=== PATIENT | female | born 2000 | race Caucasian/White ===

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

== ENCOUNTER → 2021-03-20 14:59 | Outpatient (CLI) | payer OTHER, MEDICAID, SELFPAY | PROVIDERS: PCP Family Medicine; Visit Provider Family Medicine | DX: N89.8 Other specified noninflammatory disorders of vagina (principal) | CPT/HCPCS: 87210 ==

== ENCOUNTER 2023-06-30 11:29 | Emergency (ER) | payer OTHER, MEDICAID, SELFPAY ==
[2023-06-30 11:40] VITALS: BP 113/79; PULSE 71; RESP 12; TEMP 36.6; O2SAT 99; BMI 22.8
--- NOTE | 2023-06-30 12:18 | DI.US.S_ITS ---
PROCEDURE: US PELVIC COMPLETE INDICATIONS: Abnormal vaginal bleeding, pelvic pain TECHNIQUE: Real-time scanning was performed of the pelvic organs, with image documentation. Additional endovaginal scanning was necessary due to incomplete visualization of the adnexal and endometrial structures by transabdominal scanning. COMPARISON: None. FINDINGS: Uterus: Anteverted. 8.9 x 4.2 x 5.7 cm. Endometrium measures 3 mm. Homogeneous echotexture. Ovaries: Dominant follicle in the right ovary. Right ovarian volume is 12 cc. Left ovarian volume is 4 cc. Color spectral flows are seen. Other: No pathologic free fluid. IMPRESSION: No acute sonographic abnormality in the pelvis. Dictated by: Artis Ceron M.D. on 06/30/2023 at 12:59 Approved by: Artis Ceron M.D. on 06/30/2023 at 13:00
[2023-06-30 12:35] LABS: Add Manual Diff / Slide Review NO; Basophils Absolute Auto 0 /uL (0-100); Basophils Percent Auto 0.9 % (0-2); Eosinophils Absolute Auto 100 /uL (0-450); Eosinophils Percent Auto 2.3 % (2-4); Hematocrit 38.8 % (36-46); Hemoglobin 13.6 g/dL (12.0-16.0); Lymphocytes Absolute Auto 2100 /uL (1100-4500); Lymphocytes Percent Auto 35.8 % (25-40); Mean Corpuscular HGB Conc 35.2 % (30-36); Mean Corpuscular Hemoglobin 29.9 PG (26-34); Mean Corpuscular Volume 85.1 fL (80-100); Monocytes Absolute Auto 700 /uL (0-900); Monocytes Percent Auto 11.5 % (3-14); Neutrophils Absolute Auto 2800 /uL (1500-7000); Neutrophils Percent Auto 49.5 % (50-75); Platelet Count 289 X10^3/uL (150-400); Red Blood Cell Count 4.56 X10^6/uL (4.0-5.2); Red Cell Distribution Width 12.8 % (11.6-14.8); White Blood Cell Count 5.7 X10^3/uL (4.5-11.0)
[2023-06-30 12:46] LABS: Alanine Aminotransferase 17 IU/L (<35); Albumin 4.7 g/dL (3.5-5.0); Albumin Globulin Ratio 1.2 (1.0-2.8); Alkaline Phosphatase 38 U/L (38-126); Aspartate Aminotransferase 25 IU/L (14-36); BUN Creatinine Ratio 22.6 (6-22); Bilirubin Total 1.3 mg/dL (0.2-1.3); Blood Urea Nitrogen 12 mg/dL (7-17); Calcium 10.6 mg/dL (8.4-10.2); Carbon Dioxide 28 mmol/L (22-32); Chloride 103 mmol/L (98-107); Estimated Glomerular Filt Rate > 60 mL/min (>60); Globulin 3.8 g/dL (1.7-4.1); Glucose 82 mg/dL (70-100); HEMOLYSIS < 15 (0-50); Potassium 4.1 mmol/L (3.4-5.1); Sodium 139 mmol/L (137-145); Total Protein 8.5 g/dL (6.3-8.2)
--- NOTE | 2023-06-30 13:02 | ED_ITS ---
HPI - Female Genitourinary <Kam Gutierrez PA-C - Last Filed: 06/30/23 13:20> General Chief complaint: Vaginal Bleeding Stated complaint: been on period 2mo, back pain Time Seen by Provider: 06/30/23 11:46 Source: patient Mode of arrival: Ambulatory History of Present Illness HPI Narrative: 22-year-old female presents to the ED with 2 months of vaginal bleeding. Patient states that she had a baby 4 months ago, following which she had a miscarriage in March. After that, patient started on May 03, has been bleeding since then. Patient was seen at a hospital for the miscarriage and had an ultrasound performed at the time. Patient denies fever, chills, chest pain, shortness of breath, lightheadedness, dizziness, syncope. Patient does endorse some abdominal/pelvic cramping in the lower abdomen. Patient states that she has been passing some clots over the last few days. Patient states that she has been unable to get an expedient appointment with her OBGYN. Related Data Home Medications Medication Instructions Recorded Confirmed ferrous sulfate 325 mg (65 mg 325 mg PO DAILY 06/04/22 06/04/22 iron) tablet Previous Rx's Medication Instructions Recorded medroxyprogesterone 10 mg tablet See Rx Instructions .Route 06/30/23 .COMPLEX #42 tabs Allergies Allergy/AdvReac Type Severity Reaction Status Date / Time shellfish derived Allergy Intermediate Rash Verified 06/30/23 11:42 Review of Systems <Kam Gutierrez PA-C - Last Filed: 06/30/23 13:20> Constitutional Constitutional: Denies chills, Denies fatigue, Denies fever(s), Denies frequent falls, Denies lethargy and Denies weakness Eyes Eyes: Denies change in vision, Denies eye discharge, Denies irritation and Denies loss of vision ENT Ears, Nose, Mouth, and Throat: Denies change in voice, Denies dizziness, Denies neck pain, Denies sore throat and Denies throat swelling Cardiovascular Cardiovascular: Denies chest pain, Denies irregular heart rhythm, Denies lightheadedness, Denies palpitations, Denies dyspnea, Denies dyspnea on exertion and Denies orthopnea Respiratory Respiratory: Denies cough, Denies dyspnea, Denies dyspnea on exertion and Denies wheezing Gastrointestinal Gastrointestinal: Reports abdominal pain, Denies change in bowel habits, Denies diarrhea, Denies nausea and Denies vomiting Genitourinary Genitourinary: Reports abnormal vaginal bleeding Musculoskeletal Musculoskeletal: Denies neck pain and Denies numbness Integumentary/Breasts Skin/Breast: Denies pruritus, Denies erythema, Denies rash and Denies wounds Neurologic Neurologic: Denies behavioral changes, Denies confusion, Denies dizziness, Denies frequent falls, Denies loss of vision, Denies numbness and Denies weakness Psychiatric Psychiatric: Denies anxiety, Denies behavioral changes, Denies confusion, Denies depression, Denies homicidal ideation and Denies suicidal ideation Endocrine Endocrine: Denies fatigue, Denies flushing and Denies palpitations Hematologic/Lymphatic Hematologic/Lymphatic: Denies easy bruising Allergic/Immunologic Allergic/Immunologic: Denies urticaria, Denies throat swelling and Denies wheezing Patient History <Kam Gutierrez PA-C - Last Filed: 06/30/23 13:20> Medical History Ectopic depression Spontaneous vaginal delivery Enlarged pituitary gland Sprain of tibiofibular ligament of left ankle Asthma Ankle fracture, right Depression Chicken pox Surgical History H/O dilation and curettage Anesthesia History of oral surgery Family History Grandfather Pre-diabetes Grandmother Hypertension COPD (chronic obstructive pulmonary disease) Acute heart failure Stroke Mother Anxiety PTSD (post-traumatic stress disorder) Father Bipolar disorder Anxiety Depression Brother Heart murmur Sleep apnea Brother Asperger syndrome Sleep apnea Brother Hypothyroid Pre-diabetes Sleep apnea Son Horseshoe kidney Substance Use Type: does not use Exam <aKm Gutierrez PA-C - Last Filed: 06/30/23 13:20> Narrative Exam Narrative: Const General:?cooperative, healthy appearing and comfortable [facility] Head:?normal to inspection Ears:?hearing grossly normal bilaterally Nose:?external nose normal Face and sinus:?normal facial exam and sinuses nontender Mouth:?oral mucosae normal Throat:?posterior oropharynx normal Eyes General:?appearance normal, both eyes and all related structures Neck Neck:?normal visual inspection and no lymphadenopathy noted Resp Effort & Inspection:?normal respiratory effort Auscultation:?clear to auscultation bilaterally Cardio Rate:?regular rate Rhythm:?regular rhythm GI Abdomen is soft, nondistended. Abdomen is tender to palpation in the lower quadrants. Neuro General:?patient alert, patient awake and patient oriented x3 Initial Vital Signs Initial Vital Signs: Vital Signs Temperature 98 F 06/30/23 11:40 Pulse Rate 71 06/30/23 11:40 Respiratory Rate 12 06/30/23 11:40 Blood Pressure 113/79 06/30/23 11:40 Pulse Oximetry 99 06/30/23 11:40 Oxygen Delivery Method Room Air 06/30/23 11:40 <Amilcar Pizano MD - Last Filed: 07/10/23 10:06> Initial Vital Signs Initial Vital Signs: Vital Signs Temperature 98 F 06/30/23 11:40 Pulse Rate 71 06/30/23 11:40 Respiratory Rate 12 06/30/23 11:40 Blood Pressure 113/79 06/30/23 11:40 Pulse Oximetry 99 06/30/23 11:40 Oxygen Delivery Method Room Air 06/30/23 11:40 Course <Kam Gutierrez PA-C - Last Filed: 06/30/23 13:20> Orders Ordered: ED Orders 06/30/23 12:18 US pelvic complete Stat 06/30/23 12:28 CBC Auto Diff [Complete Blood Count AUTO DIFF] Stat CMP [Comprehensive Metabolic Panel] Stat Vital Signs Vital signs: Vital Signs - 8 hr 06/30/23 11:40 Temperature 98 F Pulse Rate 71 Respiratory Rate 12 Blood Pressure 113/79 Pulse Oximetry 99 Oxygen Delivery Method Room Air <Amilcar Pizano MD - Last Filed: 07/10/23 10:06> Orders Ordered: ED Orders 06/30/23 12:18 US pelvic complete Stat 06/30/23 12:28 CBC Auto Diff [Complete Blood Count AUTO DIFF] Stat CMP [Comprehensive Metabolic Panel] Stat Vital Signs Vital signs: Vital Signs - 8 hr 06/30/23 11:40 Temperature 98 F Pulse Rate 71 Respiratory Rate 12 Blood Pressure 113/79 Pulse Oximetry 99 Oxygen Delivery Method Room Air MDM - Female Genitourinary <Kam Gutierrez PA-C - Last Filed: 06/30/23 13:20> Lab Data 06/30/23 12:28 06/30/23 12:28 Labs: Lab Results 06/30/23 Range/Units 12:28 WBC 5.7 (4.5-11.0) X10^3/uL RBC 4.56 (4.0-5.2) X10^6/uL Hgb 13.6 (12.0-16.0) g/dL Hct 38.8 (36-46) % MCV 85.1 (80-100) fL MCH 29.9 (26-34) PG MCHC 35.2 (30-36) % RDW 12.8 (11.6-14.8) % Plt Count 289 (150-400) X10^3/uL Neut % (Auto) 49.5 L (50-75) % Lymph % (Auto) 35.8 (25-40) % [place] % (Auto) 11.5 (3-14) % Eos % (Auto) 2.3 (2-4) % Baso % (Auto) 0.9 (0-2) % Neut # (Auto) 2800 (5076-1477) /uL Lymph # (Auto) 2100 (4349-2711) /uL [place] # (Auto) 700 (0-900) /uL Eos # (Auto) 100 (0-450) /uL Baso # (Auto) 0 (0-100) /uL Sodium 139 (137-145) mmol/L Potassium 4.1 (3.4-5.1) mmol/L Chloride 103 (98-107) mmol/L Carbon Dioxide 28 (22-32) mmol/L BUN 12 (7-17) mg/dL Creatinine 0.53 (0.52-1.04) mg/dL Estimated GFR > 60 (>60) mL/min BUN/Creatinine Ratio 22.6 H (6-22) Glucose 82 (70-100) mg/dL Calcium 10.6 H (8.4-10.2) mg/dL Total Bilirubin 1.3 (0.2-1.3) mg/dL AST 25 (14-36) IU/L ALT 17 (<35) IU/L Alkaline Phosphatase 38 (38-126) U/L Total Protein 8.5 H (6.3-8.2) g/dL Albumin 4.7 (3.5-5.0) g/dL Globulin 3.8 (1.7-4.1) g/dL Albumin/Globulin Ratio 1.2 (1.0-2.8) Point of Care Testing Test Results Negative Urine Dip Bedside Urine Glucose Negative Bedside Urine Bilirubin - Negative Bedside Urine Ketone - Negative Urine Specific Cade 1.010 Bedside Urine Occult Blood +++ Bedside Urine pH 8.0 Bedside Urine Protein +/- 15 Bedside Urine Urobilinogen - Negative Bedside Urine Nitrite - Negative Bedside Urine Leukocytes - Negative Esterase MDM Narrative Medical decision making narrative: 22-year-old female presents to the ED with 2 months of vaginal bleeding. Concern for versus ectopic versus threatened miscarriage versus anemia versus other. Urine negative. Obtained labs. H/H stable at 13.6/38.8. Will obtain ultrasound and reassess. Ultrasound with no acute sonographic abnormality in the pelvis. It appears that the patient is suffering from non- dysfunctional uterine bleeding. Discussed with patient and she elected to start medroxyprogesterone to stem the bleeding. Patient agrees to follow-up with her OBGYN as soon as possible. ED return precautions were discussed with patient. Patient verbalized understanding. Medical records reviewed: Yes <Amilcar Pizano MD - Last Filed: 07/10/23 10:06> Lab Data Labs: Lab Results 06/30/23 Range/Units 12:28 WBC 5.7 (4.5-11.0) X10^3/uL RBC 4.56 (4.0-5.2) X10^6/uL Hgb 13.6 (12.0-16.0) g/dL Hct 38.8 (36-46) % MCV 85.1 (80-100) fL MCH 29.9 (26-34) PG MCHC 35.2 (30-36) % RDW 12.8 (11.6-14.8) % Plt Count 289 (150-400) X10^3/uL Neut % (Auto) 49.5 L (50-75) % Lymph % (Auto) 35.8 (25-40) % [place] % (Auto) 11.5 (3-14) % Eos % (Auto) 2.3 (2-4) % Baso % (Auto) 0.9 (0-2) % Neut # (Auto) 2800 (8102-5057) /uL Lymph # (Auto) 2100 (6128-1590) /uL [place] # (Auto) 700 (0-900) /uL Eos # (Auto) 100 (0-450) /uL Baso # (Auto) 0 (0-100) /uL Sodium 139 (137-145) mmol/L Potassium 4.1 (3.4-5.1) mmol/L Chloride 103 (98-107) mmol/L Carbon Dioxide 28 (22-32) mmol/L BUN 12 (7-17) mg/dL Creatinine 0.53 (0.52-1.04) mg/dL Estimated GFR > 60 (>60) mL/min BUN/Creatinine Ratio 22.6 H (6-22) Glucose 82 (70-100) mg/dL Calcium 10.6 H (8.4-10.2) mg/dL Total Bilirubin 1.3 (0.2-1.3) mg/dL AST 25 (14-36) IU/L ALT 17 (<35) IU/L Alkaline Phosphatase 38 (38-126) U/L Total Protein 8.5 H (6.3-8.2) g/dL Albumin 4.7 (3.5-5.0) g/dL Globulin 3.8 (1.7-4.1) g/dL Albumin/Globulin Ratio 1.2 (1.0-2.8) Point of Care Testing Test Results Negative Urine Dip Bedside Urine Glucose Negative Bedside Urine Bilirubin - Negative Bedside Urine Ketone - Negative Urine Specific Cade 1.010 Bedside Urine Occult Blood +++ Bedside Urine pH 8.0 Bedside Urine Protein +/- 15 Bedside Urine Urobilinogen - Negative Bedside Urine Nitrite - Negative Bedside Urine Leukocytes - Negative Esterase Discharge Plan Departure Patient Disposition: Home Clinical Impression: Dysfunctional uterine bleeding Instructions: DI for Menorrhagia Activity Restrictions/Additional Instructions: You were evaluated in the ED today for prolonged vaginal bleeding. Your labs were normal. Your urine was negative for . Your ultrasound was normal as well. It appears that you were having an abnormally long period after your last miscarriage. You are being prescribed medroxyprogesterone to stop the bleeding. Please take it as prescribed. Please ensure to use a contraceptive methods such as condoms to prevent a while you are taking this medication. Please follow-up with your OBGYN as soon as possible. Return to the ED if you have worsening symptoms, chest pain, shortness of breath. Prescriptions: New medroxyprogesterone 10 mg tablet See Rx Instructions .ROUTE .COMPLEX Qty: 42 0RF Rx Instructions: Take 10 mg PO Q8 hours x7days; then take 10 mg PO once daily [id number] No Action ferrous sulfate 325 mg (65 mg iron) tablet 325 mg PO DAILY Referrals: Ibis Fine DO [Primary Care Provider] - Stand Alone Forms: Patient Portal/API ED Sign-out <Amilcar Pizano MD - Last Filed: 07/10/23 10:06> Cosign ED Attending Cosignature Attestation: I was immediately available in the department for consultation. This documentation has been reviewed and I agree with assessment and plan. Supervised by Amilcar Pizano MD
== END 2023-06-30 13:19 | disposition home or self-care (01) ==
PROVIDERS: Emergency Provider Student in an Organized Health Care Education/Training Program; PCP Family Medicine
DX: N93.8 Other specified abnormal uterine and vaginal bleeding (principal)
CPT/HCPCS: 36415; 76856; 80053; 81003; 81025; 85025; 99282; 99283

== ENCOUNTER 2023-10-14 20:09 | Emergency (ER) | payer OTHER, MEDICAID, SELFPAY ==
[2023-10-14] VITALS (11 sets, daily range): BP systolic 111–143; BP diastolic 58–95; PULSE 57–81; RESP 15–24; TEMP 36.7; O2SAT 96–100; BMI 23.5
--- NOTE | 2023-10-14 20:21 | DI.RAD.S_ITS ---
PROCEDURE: XR CHEST 1V INDICATIONS: Possible stroke TECHNIQUE: One view of the chest was acquired. COMPARISON: None. FINDINGS: Surgical changes and devices: None. Lungs and pleura: Lungs are clear. No pleural effusions or pneumothorax. Mediastinum: Mediastinal contours appear normal. Heart size is normal. Bones and chest wall: No suspicious bony lesions. Overlying soft tissues appear unremarkable. IMPRESSION: No acute cardiopulmonary abnormality is seen. Dictated by: Kwame Foley M.D. on 10/14/2023 at 21:13 Approved by: Kwame Foley M.D. on 10/14/2023 at 21:13
--- NOTE | 2023-10-14 20:24 | DI.CT.S_ITS ---
PROCEDURE: CT HEAD/BRAIN WO CON INDICATIONS: right facial droop TECHNIQUE: Noncontrast 4.5 mm thick angled axial sections acquired from the foramen magnum to the vertex, with coronal and sagittal reformats. For radiation dose reduction, the following was used: automated exposure control, adjustment of mA and/or kV according to patient size. COMPARISON: None. FINDINGS: Image quality: Diagnostic. CSF spaces: Basal cisterns are patent. No extra-axial fluid collections. Ventricles are normal in size and shape. Brain: No midline shift. No intracranial masses or hemorrhage. Ty-white matter interface is normal. Skull and face: Calvarium and visualized facial bones are intact, without suspicious lesions. Sinuses: Visualized sinuses and mastoids are clear. IMPRESSION: No acute intracranial pathology. Dictated by: Kwame Foley M.D. on 10/14/2023 at 20:56 Approved by: Kwame Foley M.D. on 10/14/2023 at 20:57
--- NOTE | 2023-10-14 20:24 | DI.CT.S_ITS ---
PROCEDURE: CT ANGIO HEAD AND NECK INDICATIONS: right facial droop TECHNIQUE: After the administration of intravenous contrast, 1 mm thick sections acquired from the aortic arch through the [place] [facility] [place]. 3-dimensional wnuijwh-ihcsfvbwk-qygsgeezjy (MIP) and/or volume rendering reformats were acquired of the central intracranial vasculature and neck separately. For radiation dose reduction, the following was used: automated exposure control, adjustment of mA and/or kV according to patient size. COMPARISON: None. FINDINGS: Image quality: Diagnostic. BRAIN: Please refer to same day CT of the head HEAD CT ANGIOGRAPHY: Anterior circulation: Intracranial internal carotid arteries are normal in size and flow. The flow within the paired anterior cerebral arteries is normal and symmetric. The flow within the middle cerebral arteries is normal and symmetric. The anterior communicating artery is seen. No aneurysms are seen. Posterior circulation: Visualized portions of the vertebral arteries demonstrate normal caliber, and join to form a normal appearing basilar artery. origin of the bilateral veneer joiner. Flow within the posterior cerebral arteries is normal and symmetric. No aneurysms are seen. NECK CT ANGIOGRAPHY: Carotid system: The great vessels demonstrate a conventional anatomy as they arise from the aortic arch. The origins of the common carotid arteries appear patent. The common carotid arteries demonstrate normal caliber and courses. The bifurcation regions are both widely patent. The internal carotid arteries demonstrate normal calibers and courses. Posterior circulation: The origins of the vertebral arteries both appear widely patent. The more superior extracranial portions of both vertebral arteries also demonstrate normal courses and calibers. They join to form a normal appearing basilar artery. Soft tissues: Visualized neck soft tissues demonstrate no suspicious abnormalities. Bones: No suspicious bony lesions. Visualized cervical spine appears normally aligned. IMPRESSION: No significant intracranial arterial abnormality is seen. No significant abnormality is seen within the arteries of the neck. Any quantitative measurements of stenosis were performed using NASCET criteria. Dictated by: Kwame Foley M.D. on 10/14/2023 at 21:13 Approved by: Kwame Foley M.D. on 10/14/2023 at 21:16
--- NOTE | 2023-10-14 20:46 | ED.NEUROSD ---
HPI - Neuro Symptoms/Deficit General Chief Complaint: Neuro Symptoms/Deficit Stated Complaint: Blackout, Facial numbness/drooping Time Seen by Provider: 10/14/23 20:36 Source: patient Mode of arrival: Ambulatory History of Present Illness HPI Narrative: 23-year-old female presents for evaluation of ?right lower lip droop?. History is obtained from kasie as patient is sleeping, minimally participatory in history taking, and repeatedly says ?I just want to go home?. Significant other at bedside states that in the kitchen earlier today patient was chopping up food. She sustained a laceration to her right thumb. She was evaluated at [facility] and they were discharged home. Significant other states that when they got home patient seemed loopy and had poor memory of the [facility] visit. On evaluation patient has intermittent deviation of her jaw to the right side that is positional and not consistent. She was ambulatory to the emergency department without assistance, but on evaluation has intermittent, inconsistent weakness of the upper and lower right extremities. On Anticoagulants: No Related Data Home Medications Medication Instructions Recorded Confirmed ferrous sulfate 325 mg (65 mg 325 mg PO DAILY 06/04/22 06/04/22 iron) tablet Previous Rx's Medication Instructions Recorded medroxyprogesterone 10 mg tablet See Rx Instructions .Route 06/30/23 .COMPLEX #42 tabs Allergies Allergy/AdvReac Type Severity Reaction Status Date / Time shellfish derived Allergy Intermediate Rash Verified 10/14/23 20:20 Review of Systems Review of Systems Narrative: see HPI Hematologic/Lymphatic On Anticoagulants: No Patient History Medical History Ectopic depression Spontaneous vaginal delivery Enlarged pituitary gland Sprain of tibiofibular ligament of left ankle Asthma Ankle fracture, right Depression Chicken pox Surgical History H/O dilation and curettage Anesthesia History of oral surgery Family History Grandfather Pre-diabetes Grandmother Hypertension COPD (chronic obstructive pulmonary disease) Acute heart failure Stroke Mother Anxiety PTSD (post-traumatic stress disorder) Father Bipolar disorder Anxiety Depression Brother Heart murmur Sleep apnea Brother Asperger syndrome Sleep apnea Brother Hypothyroid Pre-diabetes Sleep apnea Son Horseshoe kidney Social History marital status: unmarried,single number of children: 0 household members: family lives independently: No caregiver/support person: Yes housing: condominium ([id number] on grandparent's property) pets and animals: Yes (X 1 dog) education level: high school occupational status: unemployed current occupational exposures/hazards: No special kishor needs: No seatbelt use: always helmet use: Yes water heater temp set < 120 deg: Yes working smoke detector in home: Yes fire extinguisher in home: Yes carbon monox detector in home: Yes firearms in home: Yes firearms unloaded and locked: Yes do you feel safe at home: Yes Smoking Status: Never smoker second hand exposure: No alcohol intake: never substance use type: does not use during the past year weight has: remained stable well-balanced diet: about half the time daily servings fruits/ve-4 caffeine: Yes (1 K-cup/day) Smoking Status: Never smoker Substance Use Type: does not use Exam Initial Vital Signs Initial Vital Signs: Vital Signs Temperature 98.1 F 10/14/23 20:14 Pulse Rate 62 10/14/23 20:14 Respiratory Rate 16 10/14/23 20:14 Blood Pressure 133/95 H 10/14/23 20:14 Pulse Oximetry 99 10/14/23 20:14 Oxygen Delivery Method Room Air 10/14/23 20:14 Const: Sleeping, easily arousable, no acute distress Cardiac: regular rate, regular rhythm RESP: unlabored, clear bilaterally, no wheezing Skin: Warm, Dry, intact, no rashes Neuro: AO x3, when sitting up patient has ?facial droop that is patient pushing her jaw out to the right. When laying down this finding disappears. Patient with intermittent, inconsistent right sided upper and lower extremity weakness. Ambulatory without difficulty throughout emergency department. Course Orders Ordered: ED Orders 10/14/23 20:40 Complete Blood Count AUTO DIFF Stat Comprehensive Metabolic Panel Stat Magnesium Stat PTT Partial Thromboplastin [place] Stat Prothrombin Time INR Stat Troponin & CK Cardiac Panel Stat Urine Drug Screen, Rapid Stat Discontinued Medications Droperidol (Droperidol 5 Mg/2 Ml Vial) 2.5 mg IV NOW ONE Stop: 10/14/23 21:33 Last Admin: 10/14/23 21:39 Dose: 2.5 mg Documented By: ERNA Ondansetron HCl (Ondansetron 4 Mg/2 Ml Inj) 4 mg IV NOW PRN PRN Reason: Nausea And Vomiting Ondansetron HCl (Ondansetron 4 Mg Odt) 4 mg SL NOW PRN PRN Reason: Nausea And Vomiting Vital Signs Vital signs: Vital Signs - 8 hr 10/14/23 21:30 10/14/23 21:30 10/14/23 21:51 Pulse Rate 67 Respiratory Rate 15 Blood Pressure 143/95 H 115/62 Pulse Oximetry 100 Oxygen Delivery Method 10/14/23 21:51 10/14/23 21:52 10/14/23 21:52 Pulse Rate 80 81 Respiratory Rate 24 Blood Pressure 119/58 L Pulse Oximetry 98 98 Oxygen Delivery Method 10/14/23 22:00 10/14/23 22:30 10/14/23 22:35 Pulse Rate 69 65 Respiratory Rate 18 15 Blood Pressure 113/67 Pulse Oximetry 96 97 Oxygen Delivery Method 10/14/23 22:35 10/14/23 22:43 10/14/23 22:45 Pulse Rate 64 57 L Respiratory Rate 16 Blood Pressure 113/67 111/67 Pulse Oximetry 97 96 Oxygen Delivery Method Room Air MDM - Neuro Symptoms/Deficit Lab Data 10/14/23 20:40 10/14/23 20:40 Labs: Lab Results 10/14/23 Range/Units 20:40 WBC 7.1 (4.5-11.0) X10^3/uL RBC 4.77 (4.0-5.2) X10^6/uL Hgb 14.5 (12.0-16.0) g/dL Hct 41.4 (36-46) % MCV 86.8 (80-100) fL MCH 30.4 (26-34) PG MCHC 35.0 (30-36) % RDW 12.6 (11.6-14.8) % Plt Count 293 (150-400) X10^3/uL Neut % (Auto) 43.5 L (50-75) % Lymph % (Auto) 41.6 H (25-40) % [place] % (Auto) 11.1 (3-14) % Eos % (Auto) 3.1 (2-4) % Baso % (Auto) 0.7 (0-2) % Neut # (Auto) 3100 (6791-3080) /uL Lymph # (Auto) 2900 (6270-5781) /uL [place] # (Auto) 800 (0-900) /uL Eos # (Auto) 200 (0-450) /uL Baso # (Auto) 100 (0-100) /uL PT 11.3 (9.4-12.5) SECONDS INR 1.0 (0.9-1.3) APTT 37 H (25.1-36.5) SECONDS Sodium 140 (137-145) mmol/L Potassium 3.9 (3.4-5.1) mmol/L Chloride 107 (98-107) mmol/L Carbon Dioxide 28 (22-32) mmol/L BUN 15 (7-17) mg/dL Creatinine 0.50 L (0.52-1.04) mg/dL Estimated GFR > 60 (>60) mL/min BUN/Creatinine Ratio 30.0 H (6-22) Glucose 100 (70-100) mg/dL Calcium 10.8 H (8.4-10.2) mg/dL Magnesium 2.0 (1.6-2.3) mg/dL Total Bilirubin 1.5 H (0.2-1.3) mg/dL AST 23 (14-36) IU/L ALT 15 (<35) IU/L Alkaline Phosphatase 48 (38-126) U/L Total Creatine Kinase 61 (30-135) U/L Troponin I < 0.012 (0.01-0.034) ng/mL Total Protein 8.1 (6.3-8.2) g/dL Albumin 5.0 (3.5-5.0) g/dL Globulin 3.1 (1.7-4.1) g/dL Albumin/Globulin Ratio 1.6 (1.0-2.8) U Opiates 300ng/mL cut Negative (Negative) Ur Oxycodone Screen Negative (Negative) Urine Methadone Screen Negative (Negative) Ur Barbiturates Screen Negative (Negative) U Tricyclic Antidepress Negative (Negative) Ur Phencyclidine Scrn Negative (Negative) Ur Amphetamines Screen Negative (Negative) U Methamphetamines Scrn Negative (Negative) Ur MDMA Scrn (Ecstasy) Negative (Negative) U Benzodiazepines Scrn Negative (Negative) Urine Cocaine Screen Negative (Negative) U Marijuana (THC) Screen Negative (Negative) Urine pH Normal (Normal) Urine Specific [place] Normal (Normal) Ur Creatinine Normal (Normal) Point of Care Testing Test Results Negative Glucose POC 98 Urine Dip Bedside Urine Glucose Negative Bedside Urine Bilirubin - Negative Bedside Urine Ketone - Negative Urine Specific [place] 1.020 Bedside Urine Occult Blood - Negative Bedside Urine pH 6.5 Bedside Urine Protein - Negative Bedside Urine Urobilinogen - Negative Bedside Urine Nitrite - Negative Bedside Urine Leukocytes - Negative Esterase Imaging Data CT scan - head: Radiologist's Impression: PROCEDURE: CT HEAD/BRAIN WO CON INDICATIONS: right facial droop TECHNIQUE: Noncontrast 4.5 mm thick angled axial sections acquired from the foramen magnum to the vertex, with coronal and sagittal reformats. For radiation dose reduction, the following was used: automated exposure control, adjustment of mA and/or kV according to patient size. COMPARISON: None. FINDINGS: Image quality: Diagnostic. CSF spaces: Basal cisterns are patent. No extra-axial fluid collections. Ventricles are normal in size and shape. Brain: No midline shift. No intracranial masses or hemorrhage. Ty-white matter interface is normal. Skull and face: Calvarium and visualized facial bones are intact, without suspicious lesions. Sinuses: Visualized sinuses and mastoids are clear. IMPRESSION: No acute intracranial pathology. Dictated by: Kwame Foley M.D. on 10/14/2023 at 20:56 Approved by: Kwame Foley M.D. on 10/14/2023 at 20:57 CTA - brain/neck: Radiologist's Impression: PROCEDURE: CT ANGIO HEAD AND NECK INDICATIONS: right facial droop TECHNIQUE: After the administration of intravenous contrast, 1 mm thick sections acquired from the aortic arch through the [place]. 3-dimensional [id number] (MIP) and/or volume rendering reformats were acquired of the central intracranial vasculature and neck separately. For radiation dose reduction, the following was used: automated exposure control, adjustment of mA and/or kV according to patient size. COMPARISON: None. FINDINGS: Image quality: Diagnostic. BRAIN: Please refer to same day CT of the head HEAD CT ANGIOGRAPHY: Anterior circulation: Intracranial internal carotid arteries are normal in size and flow. The flow within the paired anterior cerebral arteries is normal and symmetric. The flow within the middle cerebral arteries is normal and symmetric. The anterior communicating artery is seen. No aneurysms are seen. Posterior circulation: Visualized portions of the vertebral arteries demonstrate normal caliber, and join to form a normal appearing basilar artery. origin of the bilateral freight elevator operator. Flow within the posterior cerebral arteries is normal and symmetric. No aneurysms are seen. NECK CT ANGIOGRAPHY: Carotid system: The great vessels demonstrate a conventional anatomy as they arise from the aortic arch. The origins of the common carotid arteries appear patent. The common carotid arteries demonstrate normal caliber and courses. The bifurcation regions are both widely patent. The internal carotid arteries demonstrate normal calibers and courses. Posterior circulation: The origins of the vertebral arteries both appear widely patent. The more superior extracranial portions of both vertebral arteries also demonstrate normal courses and calibers. They join to form a normal appearing basilar artery. Soft tissues: Visualized neck soft tissues demonstrate no suspicious abnormalities. Bones: No suspicious bony lesions. Visualized cervical spine appears normally aligned. IMPRESSION: No significant intracranial arterial abnormality is seen. No significant abnormality is seen within the arteries of the neck. Any quantitative measurements of stenosis were performed using NASCET criteria. Dictated by: Kwame Foley M.D. on 10/14/2023 at 21:13 Approved by: Kwame Foley M.D. on 10/14/2023 at 21:16 MDM Narrative Medical decision making narrative: ?loopiness? and reported facial droop at home. Patient's reported facial droop is a forced jaw deviation to the right-hand side on exam that disappears when patient lays down. She has an intermittent and inconsistent neurologic exam. I do not believe this is an acute stroke at this time and more consistent with a behavioral pattern. CT brain and CT angio imaging ordered in triage negative for acute findings. Kasie at bedside is concerned that patient may have a stroke or an aneurysm. I explained that patient's exam is inconsistent with a stroke and there were no aneurysm seen on CT angio. Patient's laboratory work is otherwise unremarkable. She was ambulatory throughout the emergency department without assistance. Patient discharged to the care of her fiance in stable condition Discharge Plan Departure Patient Disposition: Home Clinical Impression: Fatigue, Altered mental status Instructions: DI for Fatigue, DI for Altered Mental Status Activity Restrictions/Additional Instructions: Your laboratory work and imaging were all normal today. Your imaging did not show any evidence of aneurysm or stroke. Please follow up with your primary care physician if you continue to experience symptoms. Prescriptions: No Action ferrous sulfate 325 mg (65 mg iron) tablet 325 mg PO DAILY medroxyprogesterone 10 mg tablet See Rx Instructions .ROUTE .COMPLEX Qty: 42 0RF Rx Instructions: Take 10 mg PO Q8 hours x7days; then take 10 mg PO once daily [id number] Referrals: Ibis Fine DO [Primary Care Provider] - Stand Alone Forms: Patient Portal/API
[2023-10-14 20:51] LABS: Add Manual Diff / Slide Review NO; Basophils Absolute Auto 100 /uL (0-100); Basophils Percent Auto 0.7 % (0-2); Eosinophils Absolute Auto 200 /uL (0-450); Eosinophils Percent Auto 3.1 % (2-4); Hematocrit 41.4 % (36-46); Hemoglobin 14.5 g/dL (12.0-16.0); Lymphocytes Absolute Auto 2900 /uL (1100-4500); Lymphocytes Percent Auto 41.6 % (25-40); Mean Corpuscular Hemoglobin 30.4 PG (26-34); Mean Corpuscular Volume 86.8 fL (80-100); Monocytes Absolute Auto 800 /uL (0-900); Monocytes Percent Auto 11.1 % (3-14); Neutrophils Absolute Auto 3100 /uL (1500-7000); Neutrophils Percent Auto 43.5 % (50-75); Platelet Count 293 X10^3/uL (150-400); Red Blood Cell Count 4.77 X10^6/uL (4.0-5.2); Red Cell Distribution Width 12.6 % (11.6-14.8); White Blood Cell Count 7.1 X10^3/uL (4.5-11.0)
[2023-10-14 20:58] LABS: Prothrombin Time 11.3 SECONDS (9.4-12.5)
[2023-10-14 21:01] LABS: PTT Partial Thromboplastin Tim 37 SECONDS (25.1-36.5)
[2023-10-14 21:05] LABS: Alanine Aminotransferase 15 IU/L (<35); Albumin Globulin Ratio 1.6 (1.0-2.8); Alkaline Phosphatase 48 U/L (38-126); Aspartate Aminotransferase 23 IU/L (14-36); Bilirubin Total 1.5 mg/dL (0.2-1.3); Blood Urea Nitrogen 15 mg/dL (7-17); Calcium 10.8 mg/dL (8.4-10.2); Carbon Dioxide 28 mmol/L (22-32); Chloride 107 mmol/L (98-107); Creatine Kinase 61 U/L (30-135); Estimated Glomerular Filt Rate > 60 mL/min (>60); Globulin 3.1 g/dL (1.7-4.1); Glucose 100 mg/dL (70-100); HEMOLYSIS < 15 (0-50); Potassium 3.9 mmol/L (3.4-5.1); Sodium 140 mmol/L (137-145); Total Protein 8.1 g/dL (6.3-8.2)
[2023-10-14 21:13] LABS: UR Morphine/Opiate cutoff 300 Negative (Negative); Ur Creatinine Normal (Normal); Ur Specific Gravity Normal (Normal); Urine Amphetamines Negative (Negative); Urine Barbiturates Negative (Negative); Urine Benzodiazepines Negative (Negative); Urine Cocaine Negative (Negative); Urine MDMA Negative (Negative); Urine Methadone Negative (Negative); Urine Methamphetamines Negative (Negative); Urine Oxycodone Negative (Negative); Urine Phencyclidine Negative (Negative); Urine Tetrahydrocannabinol Negative (Negative); Urine Tricyclic Antidepressant Negative (Negative); Urine pH Normal (Normal)
[2023-10-14 21:16] LABS: Troponin I < 0.012 ng/mL (0.01-0.034)
[2023-10-14] MEDS: DROPERIDOL 5 MG/2 ML VIAL 2.5 MG IV (21:39)
--- NOTE | 2023-10-14 22:39 | PC.NURSE ---
Ambulate around dept per provider. Pt walked around the dept without difficulty only complaint per pt I am tired i have been up since 429, when can I go home?
--- NOTE | 2023-10-15 15:41 | PC.NURSE ---
Pt called requesting a note for work. I informed her I could give a note stating that she was seen in the ED. Pt asked that it be mailed to her. I confirmed address, printed and mailed.
== END 2023-10-14 23:01 | disposition home or self-care (01) ==
PROVIDERS: Emergency Provider Emergency Medicine; PCP Family Medicine
DX: R41.82 Altered mental status, unspecified (principal); R53.83 Other fatigue; R29.810 Facial weakness
CPT/HCPCS: 36415; 70450; 70496; 70498; 71045; 80053; 80305; 81003; 81025; 82550; 82962; 83735; 84484; 85025; 85610; 85730; 93005; 96374; 99284; J1790; Q9967